=== PATIENT | male | born 1970 | race Caucasian/White ===

== ENCOUNTER 2017-03-03 12:01 | Emergency (ER) | payer OTHER ==
[2017-03-03] MEDS ORDERED: CEPHALEXIN 500 MG CAPSULE PO ONE (12:38)
[2017-03-03] MEDS ORDERED: DIPH/PERTUSS(ACELL)/TETANUS VAC/PF 0.5 ML SYR (>=10YO) IM ONE (12:38)
--- NOTE | 2017-03-03 13:19 | RADIOLOGY REPORT (SQ) ---
EXAM DESCRIPTION: TOE LEFT COMPLETED DATE/TIME: 03/03/2017 1:02 pm REASON FOR STUDY: crush injury COMPARISON: None. NUMBER OF VIEWS: Three views. TECHNIQUE: AP, lateral, and oblique images acquired of the left first toe. LIMITATIONS: External artifact. FINDINGS: MINERALIZATION: Normal. BONES: No acute fracture or dislocation. No worrisome bone lesions. JOINTS: No effusions. SOFT TISSUES: No soft tissue swelling. No foreign body. OTHER: No other significant finding. IMPRESSION: NO RADIOGRAPHIC EVIDENCE OF ACUTE INJURY. COMMENT: SITE OF TRAUMA/COMPLAINT MARKED/STAMP COMPLETED: YES. TECHNICAL DOCUMENTATION: JOB ID: [id number] [employer]- All Rights Reserved
[2017-03-03] MEDS ORDERED: LIDOCAINE 1% INJ-PF (10 MG/ML) 30 ML SDV INJ ONE (13:25)
--- NOTE | 2017-03-03 13:48 | ER Document Report ---
ED Extremity Problem, Lower - General Chief Complaint: Toe Injury Stated Complaint: TOE INJURY Time Seen by Provider: 03/03/17 12:32 TRAVEL OUTSIDE OF THE [place] IN LAST 30 DAYS: No - HPI Patient complains to provider of: Injury Location: Great Toe Occurred: Just prior to arrival - stubbed [place] toe [place], had previous dropped a log on it two days prior Onset/Duration: Sudden Context: Crush - Related Data Allergies/Adverse Reactions: ibuprofen Allergy (Verified 03/03/17 12:06) Past Medical History - Social History Smoking Status: Never Smoker Chew tobacco use (# tins/day): No Frequency of alcohol use: Social Drug Abuse: None Family History: Reviewed & Not Pertinent Renal/ Medical History: Denies: Hx Peritoneal Dialysis Surgical Hx: Negative Review of Systems - Review of Systems Constitutional: No symptoms reported Musculoskeletal: See HPI Skin: Other - avulsed toe nail -: Yes All other systems reviewed and negative Physical Exam - Vital signs Vitals: Temp Pulse Resp BP Pulse Ox 97.9 F 75 16 152/78 H 100 03/03/17 12:06 03/03/17 12:06 03/03/17 12:06 03/03/17 12:06 03/03/17 12:06 - General General appearance: Appears well, Alert In distress: None - Cardiovascular Pulses: Normal: Dorsalis pedis Normal capillary refill: Yes - Extremities Ankle: Normal, Nontender Foot: Tender - distal end of the great toe, Nail injury - avulsion on the left great toe, No evidence of FB. No: Unable to bear weight - Skin Skin Temperature: Warm Skin Moisture: Dry Skin Color: Normal Skin Turgor: Elastic Course - Re-evaluation Re-evalutation: 03/03/17 15:10 Patient is a 46-year-old male hemodynamic stable, no acute distress afebrile no evidence of fracture, foreign body noted x-ray. Also removed and dried with wet to dry dressing. Patient educated on wound care advised and follow-up with primary care. - Vital Signs Vital signs: Temp Pulse Resp BP Pulse Ox 98.3 F 76 16 142/80 H 100 03/03/17 13:54 03/03/17 13:54 03/03/17 12:06 03/03/17 13:54 03/03/17 13:54 - Diagnostic Test Radiology reviewed: Image reviewed, Reports reviewed Discharge - Discharge Clinical Impression: Nail avulsion, toe Qualifiers: Encounter type: initial encounter Qualified Code(s): S91.209A - Unspecified open wound of unspecified toe(s) with damage to nail, initial encounter Condition: Good Disposition: HOME, SELF-CARE Instructions: Avulsed Nail ([facility]) Prescriptions: Acetaminophen with Codeine [Acetaminophen-Cod #3 Tablet] 1 each PO BID #10 tablet Cephalexin Monohydrate [Keflex 500 mg Capsule] 500 mg PO QID #20 capsule Forms: Elevated Blood Pressure
[2017-03-03 13:56] VITALS: BP 142/80
== END 2017-03-03 13:57 | disposition home or self-care (01) ==
LOC: ER 12:01
DX: S91.202A Unspecified open wound of left great toe with damage to nail, initial encounter (principal); W22.8XXA Striking against or struck by other objects, initial encounter; Y92.832 Beach as the place of occurrence of the external cause
CPT/HCPCS: 99283; 90471; 73660; 90715; J3490; A6266